=== PATIENT | female | born 1960 | race Caucasian/White ===

== ENCOUNTER 2016-10-27 02:44 | Inpatient (IN) | payer MEDICARE ==
[~2016-10-27] VITALS: Ht 154.9 cm; Wt 70.1 kg
[2016-10-27] VITALS (8 sets, daily range): BP systolic 137–164; BP diastolic 75–83; PULSE 57–67; RESP 16–19; TEMP 96.3–98; O2SAT 94–97
[~2016-10-27 02:44] MED LIST: HYDR-3366 PO; SOMA350T PO; XANA2TAB2 PO
[2016-10-27] MEDS ORDERED: BISACODYL 10 MG SUPP RECTAL PRN (03:30)
[2016-10-27] MEDS ORDERED: SODIUM CHLORIDE 0.9% FLUSH 10 ML FLUSH IV FLUSH PRN (03:30)
[2016-10-27] MEDS ORDERED: MAGNESIUM HYDROXIDE SUSP 30 ML CUP PO PRN (03:30)
[2016-10-27] MEDS ORDERED: ONDANSETRON HCL 4 MG/2 ML VIAL IVP PRN (03:30)
[2016-10-27] MEDS ORDERED: NALOXONE HCL 0.4 MG/ML AMP IV PRN (03:30)
[2016-10-27] MEDS ORDERED: MORPHINE SULFATE 4 MG/ML INJ IV PUSH PRN (03:30)
[2016-10-27] MEDS ORDERED: Vancomycin Consult Pharmacy 1 EA OTHER SCH (03:30)
[2016-10-27] MEDS: ENOXAPARIN SODIUM 40 MG/0.4 ML SYRINGE SQ SCH (04:11)
[2016-10-27] MEDS: SODIUM CHLOR 0.9% 1000 ML INJ 1,000 ML IV SCH ×2 (04:12→17:23)
[2016-10-27] MEDS: POTASSIUM CHLOR 10 MEQ PREMIX 100 ML IV SCH ×3 (04:13→08:21)
[2016-10-27] MEDS: PIPERACIL-TAZO 3.375 GM PREMIX 50 ML IV SCH ×3 (06:04→17:20)
--- NOTE | 2016-10-27 07:40 | HHI.HP ---
[facility] John Garcia MD Admission Diagnosis Diagnoses: (1) Cellulitis Diagnosis: Principal (2) Abdominal pain Diagnosis: Principal (3) Nausea & vomiting Diagnosis: Principal (4) Hypokalemia Diagnosis: Principal (5) Hyperglycemia Diagnosis: Principal Chief Complaint: Abdominal pain, nausea, vomiting, right leg redness Travel History International Travel<30 Days: No Contact w/Intl Traveler <30 Da: No Traveled to Known Affected Are: No Sepsis Criteria SIRS Criteria (2 or more): WBC > 23275, < 4000 or > 10% bands Sepsis Criteria (SIRS+source): Infect source susp/known History of Present Illness Written by Wyatt Fox, acting as scribe for Dr. Radford on 10/27/16 at 08: 03. 56-year-old female with known history of arthritis, history of bowel obstruction, history of right leg cellulitis who presented to hospital because of abdominal pain, nausea, vomiting, right leg redness. Patient states that she is in normal state of health until Thursday night when she started developing some generalized abdominal pain, abdominal bloating that progressively got worse until she started having nausea and vomiting. She denied any hematemesis, diarrhea, constipation, melena, hematochezia. Patient has have history of small bowel obstruction in which she was admitted the hospital for years ago with NG tube, conservative treatment and discharged. Patient not had any recurrent abdominal discomfort until Thursday night/Thursday. On Thursday morning she did notice erythema noted on her right lower extremity. Denies any insect bites, exposure, working in the yard. She indicates that she had similar episode of the same leg in April 2014 where she was hospitalized with antibiotics. In which she recovered well and has not had any recurrence until yesterday. Patient indicates that she felt as if she was having fever and chills. Patient went to the ER and was found to have signs of infection, dehydration with leukocytosis, hypokalemia and cellulitis of the right lower extremity. Patient was recommended by ER physician to be admitted for further evaluation and management. At the time evaluating the patient patient appears be much improved. No longer experiencing any abdominal pain, nausea, vomiting. Cellulitis has improved. Patient states that she would like to go home Review of Systems Constitutional: COMPLAINS OF: Fever, Chills, DENIES: Diaphoretic episodes, Fatigue, Weight gain, Weight loss, Dizziness, Change in appetite, Night Sweats Endocrine: DENIES: Abnorml menstrual pattern, Heat/cold intolerance, Polydipsia , Polyuria, Polyphagia Eyes: DENIES: Blurred vision, Diplopia, Eye inflammation, Eye pain, Vision loss , Double Vision Ears, nose, mouth, throat: DENIES: Hearing loss, Nasal discharge, Throat pain, Ear Pain, Running Nose, Sinus Pain Respiratory: DENIES: Apneas, Cough, Snoring, Wheezing, Hemoptysis, Sputum production, Shortness of breath Cardiovascular: DENIES: Chest pain, Palpitations, Syncope, Dyspnea on Exertion , PND, Lower Extremity Edema, Orthopnea, Claudication Gastrointestinal: COMPLAINS OF: Abdominal pain, Nausea, Vomiting, DENIES: Black stools, Bloody stools, Constipation, Diarrhea, Difficulty Swallowing, Anorexia Genitourinary: DENIES: Abnormal vaginal bleeding, Dysmenorrhea, Dyspareunia, Sexual dysfunction, Urinary frequency, Urinary incontinence, Urgency, Hematuria , Dysuria, Nocturia, Vaginal discharge Musculoskeletal: DENIES: Joint pain, Muscle aches, Stiffness, Joint Swelling, Back pain, Neck pain Integumentary: DENIES: Abnormal pigmentation, Pruritus, Rash, Nail changes, Breast masses, Breast skin changes, Nipple discharge Hematologic/lymphatic: DENIES: Bruising, Lymphadenopathy Immunologic/allergic: DENIES: Eczema, Urticaria Neurologic: DENIES: Abnormal gait, Headache, Localized weakness, Paresthesias, Seizures, Speech Problems, Tremor, Poor Balance Psychiatric: DENIES: Anxiety, Confusion, Mood changes, Depression, Hallucinations, Agitation, Suicidal Ideation, Homicidal Ideation, Delusions Past Family Social History Past Medical History Arthritis History of bowel obstruction History of right lower leg cellulitis Past Surgical History 3 D&C 3 Reported Medications Reported Meds & Active Scripts Active Reported Xanax (Alprazolam) 2 Mg Tab 2 Mg PO Q8H PRN [place] (Hydrocodone-Acetaminophen) 10-325 Mg Tab 1 Tab PO Q6H PRN [place] (Carisoprodol) 350 Mg Tab 350 Mg PO QID PRN Allergies: Coded Allergies: Prednisone (Verified Allergy, Mild, Nausea/Vomiting, 10/26/16) Family History Reviewed is significant for mother with heart disease, diabetes is prevalent in mother's side of the family Social History Patient smokes a pack a cigarettes a day since she was 15 years old. Denies any alcohol or illicit drugs Physical Exam Vital Signs Vital Signs Date Time Temp Pulse Resp B/P Pulse Ox O2 Delivery O2 Flow Rate FiO2 10/27/16 05:20 10/27/16 04:13 96 21 10/27/16 03:30 97.3 66 18 147/76 96 Physical Exam GENERAL: Well-developed, well-nourished, in no acute distress. alert and orientated HEENT: Head is normocephalic without any lesions or masses noted. Facial features are symmetric. Eyes: Pupils equal round reactive to light. Extraocular muscles are intact. Conjunctivae were clear. Oropharyngeal: Pharynx without any erythema edema. Tongue is midline without deviation. Buccal mucosa is moist without any masses or lesions NECK: Supple without any masses. Trachea midline no deviation. No JVD, no bruits are appreciated CARDIAC: Regular rhythm, regular rate. S1/S2 are heard. No murmurs gallops or rubs. LUNGS: Clear to auscultation bilaterally. No wheeze, rhonchi or rales. No use of accessory muscles on inspiration or expiration. ABDOMEN: Soft, nontender. Nondistended. Bowel sounds heard in all 4 quadrants. No organomegaly or masses. Negative rebound, negative guarding EXTREMITIES: No edema, pulses are equal bilaterally. No cyanosis or clubbing NEUROLOGY: Mood and affect appear appropriate. Cranial nerves II through XII grossly intact. Muscle strength 5/5 in upper and lower extremities bilaterally. Deep tendon reflexes are 2+ in upper and lower extremities bilaterally. RIGHT LOWER EXTREMITY: Patient does have some mild erythema which is pink in color and appears to be receding from the previously marked outline, no puncture wounds, fluctuance, signs of any abscess Septic Shock Reassessment Heart: Regular rate and rhythm Lungs: Clear Skin: Warm, Moist Peripheral Pulses: Bounding Right Radial Bounding Left Radial Capillary Refill: Brisk, <2 seconds Assessment and Plan Problem List: (1) Abdominal pain ICD Code: R10.9 Status: Resolved Plan: Patient presented with abdominal pain, bloating with associated nausea and vomiting and history of bowel obstruction CT scan did not indicate any acute abnormality Laboratory studies do not indicate any acute abnormality Continue IV fluids Advance diet (2) Cellulitis ICD Code: L03.90 Status: Acute Plan: Patient with recurrent cellulitis right lower extremity, last episode was 3 years ago Patient on empirical antibiotics include vancomycin, Zosyn Blood cultures are pending Clinically improving at this time with cellulitis resending from previously marked line (3) Leucocytosis ICD Code: D72.829 Status: Acute Plan: Multifactorial with patient having cellulitis, nausea vomiting could be secondary to infection with concentration Continue follow CBC (4) Hypokalemia ICD Code: E87.6 Status: Acute Plan: Likely secondary to nausea vomiting Potassium replaced in the emergency department Continue to follow potassium level and replace as needed (5) Hyperglycemia ICD Code: R73.9 Status: Acute Plan: Patient does have family history of diabetes, also could be reactive to nausea and vomiting Check hemoglobin A1c Assessment and Plan DVT prevention Subcutaneous Lovenox This note was transcribed by rebekah Fox. I, Dr. Tesfaye Radford personally performed the history, physical exam, and medical decision making; and confirmed the accuracy of the information in the transcribed note. Authenticated by Dr. Tesfaye Radford on 10/27/16 at 08:03. Code Status Full code Discussed Condition With Patient Physician Certification 2 Midnight Certification Type: Admission for Inpatient Services Order for Inpatient Services The services are ordered in accordance with Medicare regulations or non- Medicare payer requirements, as applicable. In the case of services not specified as inpatient-only, they are appropriately provided as inpatient services in accordance with the 2-midnight benchmark. Estimated LOS (days): 2 days is the estimated time the patient will need to remain in the hospital, assuming treatment plan goals are met and no additional complications. Post-Hospital Plan: Home Problem Qualifiers (1) Cellulitis: (2) Abdominal pain: Qualified Code: R10.84 - Generalized abdominal pain (3) Nausea & vomiting: Qualified Code: R11.2 - Non-intractable vomiting with nausea, unspecified vomiting type Wyatt Fox Oct 27, 2016 07:40 Tesfaye Radford MD Oct 27, 2016 07:43
[2016-10-27] MEDS: SODIUM CHLORIDE 0.9% FLUSH 10 ML FLUSH IV FLUSH SCH ×2 (08:21→21:00)
[2016-10-27] MEDS ORDERED: DOCUSATE SODIUM 50 MG/SENNA 8.6 MG TAB PO SCH (09:00)
[2016-10-27 09:29] LABS: AUTOMATED NEUTROPHIL # 9.5 TH/MM3 (1.8-7.7); BASOPHIL % 0.1 % (0.0-2.0); EOSINOPHIL % 0.1 % (0.0-4.0); HEMATOCRIT 38.5 % (35.0-46.0); HEMO FLAGS DIFF FINAL; LYMPH % 7.9 % (9.0-44.0); LYMPHOCYTE # 0.9 TH/MM3 (1.0-4.8); MEAN CELL VOLUME 93.3 FL (80.0-100.0); MEAN CORPUSCULAR HEMOGLOBIN 31.5 PG (27.0-34.0); MEAN CORPUSCULAR HGB CONC 33.8 % (32.0-36.0); MONO % 4.7 % (0.0-8.0); NEUT % 87.2 % (16.0-70.0); PLATELET COUNT 269 TH/MM3 (150-450); RED BLOOD COUNT 4.13 MIL/MM3 (4.00-5.30); RED CELL DISTRIBUTION WIDTH 13.4 % (11.6-17.2); WHITE BLOOD COUNT 10.9 TH/MM3 (4.0-11.0)
[2016-10-27 09:55] LABS: CHLORIDE 111 MEQ/L (98-107); POTASSIUM 3.4 MEQ/L (3.5-5.1); SODIUM (NA) 146 MEQ/L (136-145)
[2016-10-27 10:00] LABS: ANION GAP 8 MEQ/L (5-15); BICARBONATE 26.7 MEQ/L (21.0-32.0); BLOOD UREA NITROGEN 15 MG/DL (7-18); MAGNESIUM 2.1 MG/DL (1.5-2.5)
[2016-10-27 10:03] LABS: GLOMERULAR FILTRATION RATE 95 ML/MIN (>89)
[2016-10-27] MEDS ORDERED: POTASSIUM CHLORIDE 20 MEQ CONTROLLED RELEASE TAB PO ONE (11:00)
[2016-10-27] MEDS ORDERED: ONDANSETRON HCL 4 MG/2 ML VIAL IV PRN (12:30)
[2016-10-27] MEDS ORDERED: ACETAMINOPHEN 325 MG TAB PO PRN (12:30)
[2016-10-27] MEDS ORDERED: TEMAZEPAM 15 MG CAP PO PRN (12:30)
[2016-10-27] MEDS ORDERED: DOCUSATE SODIUM 50 MG/SENNA 8.6 MG TAB PO PRN (12:30)
[2016-10-27] MEDS: ENALAPRILAT 1.25 MG/ML VIAL IV PUSH PRN (13:14)
[2016-10-27] MEDS: VANCOMYCIN INJ 850 MG in SODIUM CHLOR 0.9% 250 ML INJ 250 ML IV SCH (13:15)
[2016-10-27 15:38] LABS: HEMOGLOBIN A1a 1.1 %; HEMOGLOBIN A1b 1.8 %; HEMOGLOBIN Ao 84.1 %; HEMOGLOBIN LA1C 2.4 %; HEMOGLOBIN P3 4.1 %
[2016-10-28] VITALS (9 sets, daily range): BP systolic 140–207; BP diastolic 75–99; PULSE 59–74; RESP 18–19; TEMP 96.9–98.1; O2SAT 94–99
[2016-10-28] MEDS: VANCOMYCIN INJ 850 MG in SODIUM CHLOR 0.9% 250 ML INJ 250 ML IV SCH ×2 (02:00→14:33)
[2016-10-28] MEDS: ENOXAPARIN SODIUM 40 MG/0.4 ML SYRINGE SQ SCH (03:43)
[2016-10-28] MEDS: PIPERACIL-TAZO 3.375 GM PREMIX 50 ML IV SCH ×2 (05:34)
[2016-10-28] MEDS: SODIUM CHLOR 0.9% 1000 ML INJ 1,000 ML IV SCH ×2 (06:03→11:37)
[2016-10-28 06:54] LABS: POTASSIUM 3.1 MEQ/L (3.5-5.1)
[2016-10-28 07:01] LABS: BICARBONATE 25.6 MEQ/L (21.0-32.0)
[2016-10-28 07:03] LABS: AUTOMATED NEUTROPHIL # 7.1 TH/MM3 (1.8-7.7); BASOPHIL % 0.2 % (0.0-2.0); EOSINOPHIL % 0.2 % (0.0-4.0); HEMATOCRIT 39.2 % (35.0-46.0); HEMO FLAGS DIFF FINAL; LYMPH % 16.7 % (9.0-44.0); LYMPHOCYTE # 1.5 TH/MM3 (1.0-4.8); MEAN CELL VOLUME 94.3 FL (80.0-100.0); MEAN CORPUSCULAR HEMOGLOBIN 31.5 PG (27.0-34.0); MEAN CORPUSCULAR HGB CONC 33.4 % (32.0-36.0); MONO % 7.2 % (0.0-8.0); NEUT % 75.7 % (16.0-70.0); PLATELET COUNT 280 TH/MM3 (150-450); RED BLOOD COUNT 4.16 MIL/MM3 (4.00-5.30); WHITE BLOOD COUNT 9.3 TH/MM3 (4.0-11.0)
[2016-10-28] MEDS ORDERED: POTASSIUM CHLORIDE 10 MEQ CONTROLLED RELEASE TAB PO ONE (07:45)
[2016-10-28] MEDS: SODIUM CHLORIDE 0.9% FLUSH 10 ML FLUSH IV FLUSH SCH (08:52)
--- NOTE | 2016-10-28 08:58 | HHI.PR ---
Subjective Remarks Follow-up right lower extremity cellulitis 10/28/16-patient seen and examined, afebrile, Reports improvement of right lower extremity erythema, pain and swelling. A1c 6.2 and BP consistently high. Positive for multiple episodes of loose stools Objective Vitals Vital Signs Date Time Temp Pulse Resp B/P Pulse Ox O2 Delivery O2 Flow Rate FiO2 10/28/16 00:00 96.9 64 18 157/80 94 10/27/16 20:20 97 21 10/27/16 20:00 97.4 57 18 137/80 96 10/27/16 17:23 96.9 63 19 163/75 96 10/27/16 12:00 98.0 67 16 160/77 94 10/27/16 09:16 95 21 I/O 10/27/16 10/27/16 10/27/16 10/28/16 10/28/16 10/28/16 06:59 14:59 22:59 06:59 14:59 22:59 Intake Total 250 ml 790 ml Balance 250 ml 790 ml Intake Oral 540 ml IV Total 250 ml 250 ml # Voids 3 # Bowel Movements 3 Result Diagram: 10/28/16 0610 10/28/16 0610 Objective Remarks GENERAL: NAD SKIN: erythema and mildly swelling RLE HEAD: Normocephalic. EYES: No scleral icterus. No injection or drainage. NECK: Supple, trachea midline. No JVD or lymphadenopathy. CARDIOVASCULAR: Regular rate and rhythm without murmurs, gallops, or rubs. RESPIRATORY: Breath sounds equal bilaterally. No accessory muscle use. GASTROINTESTINAL: Abdomen soft, non-tender, nondistended. MUSCULOSKELETAL: No cyanosis, or edema. BACK: Nontender without obvious deformity. No CVA tenderness. A/P Problem List: (1) Abdominal pain ICD Code: R10.9 Status: Resolved Plan: Patient presented with abdominal pain, bloating with associated nausea and vomiting and history of bowel obstruction -now resolved CT scan did not indicate any acute abnormality Laboratory studies do not indicate any acute abnormality Continue IV fluids (2) Cellulitis ICD Code: L03.90 Status: Acute Plan: Clinically Improving on empirical antibiotics include vancomycin, Zosyn De-escalate antibiotic by discontinuing Zosyn Will switch to oral antibiotic on discharge Blood cultures NTD (3) Leucocytosis ICD Code: D72.829 Status: Acute Plan: Multifactorial with patient having cellulitis, nausea vomiting could be secondary to infection with concentration Resolved (4) Hypokalemia ICD Code: E87.6 Status: Acute Plan: Likely secondary to nausea vomiting Give potassium 60 mEq 1 now (5) Hyperglycemia ICD Code: R73.9 Status: Acute Plan: Patient does have family history of diabetes, also could be reactive to nausea and vomiting hemoglobin A1c 6.2 (6) Pre-diabetes ICD Code: R73.03 Status: Acute Plan: A1c 6.2 Consult clinical nurse educator Advised lifestyle modification including tobacco cessation Hold on starting any treatment at this point Repeat hemoglobin A1c in 3 months (7) Hypertension ICD Code: I10 Status: Acute Plan: Newly diagnosed Start Norvasc 5 mg daily Patient advised on tobacco cessation Problem Qualifiers (1) Abdominal pain: Qualified Code: R10.84 - Generalized abdominal pain (2) Cellulitis: Tesfaye Radford MD Oct 28, 2016 08:57
[2016-10-28] MEDS ORDERED: LACT PO (08:59)
[2016-10-28] MEDS ORDERED: BACT800T5 PO (08:59)
[2016-10-28] MEDS ORDERED: AMLO5 PO ×2 (08:59→09:00)
[2016-10-28] MEDS ORDERED: LACTOBACILLUS ACIDOPHILUS TAB PO SCH (09:00)
[2016-10-28] MEDS ORDERED: amLODIPine BESYLATE 5 MG TAB PO SCH (09:00)
[2016-10-28] MEDS: ENALAPRILAT 1.25 MG/ML VIAL IV PUSH PRN (16:54)
[2016-10-28] MEDS ORDERED: hydrALAZINE HCL 20 MG/ML VIAL IV PUSH PRN (18:30)
[2016-10-28] MEDS ORDERED: cloNIDine HCL 0.2 MG TAB PO ONE (18:45)
[2016-10-29] MEDS ORDERED: PHARMACY ORDERED LAB ONE (13:45)
== END 2016-10-28 19:08 | disposition home or self-care (01) | DRG 603 ==
LOC: NEDDLT 02:44 → PH3B 02:47
PROVIDERS: ADMIT Hospitalist; ATTEND Hospitalist
DX: L03.115 Cellulitis of right lower limb (principal); I10 Essential (primary) hypertension; E87.6 Hypokalemia; M19.90 Unspecified osteoarthritis, unspecified site; F17.210 Nicotine dependence, cigarettes, uncomplicated; R11.2 Nausea with vomiting, unspecified; R73.9 Hyperglycemia, unspecified; Z83.3 Family history of diabetes mellitus; R73.03 Prediabetes
CPT/HCPCS: 71010; 74177; 80048; 80053; 83036; 83605; 83690; 83735; 84484; 85025; 87040; 93005; 94150; C9113; J1650; J1885; J1956; J2405; J2543; J2765; J3370; J3480; J7030; J7050; Q9967